=== PATIENT | female | born 1970 | race Caucasian/White ===

== ENCOUNTER 2019-03-16 18:06 | Emergency (ER) | payer MEDICAID, OTHER ==
[~2019-03-16] VITALS: Ht 160 cm; Wt 91.4 kg
[~2019-03-16 18:06] MED LIST: HYDR-4011 PO; METH750T93 PO; ONDA4TAB14 PO
[2019-03-16 18:12] VITALS: Ht 160 cm; Wt 91.4 kg
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
[2019-03-16] MEDS ORDERED: ONDANSETRON (ODT) 4 MG TAB ODT STA (20:10)
[2019-03-16] MEDS ORDERED: HYDROCODONE/APAP (5/325) TAB PO ONE (20:30)
[2019-03-16] MEDS ORDERED: METHOCARBAMOL 500 MG TAB PO ONE (20:30)
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
[2019-03-16 21:40] VITALS: BP 128/67; PULSE 82; RESP 18
== END 2019-03-16 21:46 | disposition home or self-care (01) ==
LOC: FTE 18:06
DX: M54.2 Cervicalgia (principal); R51 Headache; V49.50XA Passenger injured in collision with unspecified motor vehicles in traffic accident, initial encounter
CPT/HCPCS: Z7502; Z7610; 99283